=== PATIENT | male | born 1930 | race Caucasian/White ===

== ENCOUNTER 2018-09-07 15:11 | Emergency (ER) | payer BC, OTHER ==
[2018-09-07 15:22] VITALS: BP 137/89; PULSE 71; TEMP 98.2; BMI 26.9
--- NOTE | 2018-09-07 16:02 | PDOC ---
History of Present Illness - General Chief Complaint: Pain, Acute Stated Complaint: RT.SHOULDER PAIN Time Seen by Provider: 09/07/18 15:45 History Source: Patient - History of Present Illness Initial Comments: 09/07/18 16:11 patient has right shoulder pain, acute onset this afternoon. 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 tried to lift self off toilet using his right arm to push off and strained his right shoulder and upper back muscles. gave him one Aleve and one Tylenol tablet which helped resolve most of his pain but was concerned about any other structural problem.enies fever, shortness of breath, no pleuritic chest pain, nor any breathing problems. Has no cardiac issue, denies numbness or tingling to hands Pain Location: reports: back Loss of Consciousness: no loss of consciousness Associated Symptoms (Fall): denies symptoms Past History - Travel Traveled outside of the country in the last 30 days: No Close contact w/someone who was outside of country & ill: No - Past Medical History Allergies/Adverse Reactions: Allergies Allergy/AdvReac Type Severity Reaction Status Date / Time No Known Allergies Allergy Verified 09/07/18 15:18 Home Medications: Ambulatory Orders Acetaminophen [Tylenol] 325 mg PO Q4H 09/07/18 Naproxen Sodium [Aleve] 220 mg PO ASDIR 09/07/18 - Suicide/Smoking/Psychosocial Hx Smoking History: Never smoked Have you smoked in the past 12 months: No Information on smoking cessation initiated: No Hx Alcohol Use: No Drug/Substance Use Hx: No Review of Systems - Review of Systems Able to Perform ROS?: Yes Is the patient limited American proficient: Yes HEENTM: Yes: See HPI. No: Symptoms Reported Respiratory: Yes: See HPI. No: Symptoms reported Musculoskeletal: Yes: Symptoms Reported, See HPI, Back Pain, Muscle Pain All Other Systems: Reviewed and Negative *Physical Exam - Vital Signs Last Vital Signs Temp Pulse Resp BP Pulse Ox 98.2 F 71 18 137/89 97 09/07/18 15:13 09/07/18 15:13 09/07/18 15:13 09/07/18 15:13 09/07/18 15:13 - Physical Exam General Appearance: Yes: Nourished, Appropriately Dressed, Apparent Distress HEENT: positive: NIC, Normal ENT Inspection, TMs Normal, Pharynx Normal Neck: positive: Supple. negative: Tender Respiratory/Chest: positive: Lungs Clear Gastrointestinal/Abdominal: positive: Soft. negative: Tender Musculoskeletal: positive: Normal Inspection, Decreased Range of Motion ( patient has lessened range of motion actively to abduction and forward flexion but able to passively abduct and forward flex past 90 elbow. Has no crepitus or step-offs to the scapula or clavicle, no before meals tenderness. Has no fullness ordeformity to shoulder joint. Has no C-spine tenderness crepitus or step-offs.Unable to reproduce point tenderness to upper trapezius or sternocleidomastoid insertions.). negative: Muscle Spasm (no palpable spasm or tension noted.) Extremity: positive: Normal Capillary Refill, Normal Inspection. negative: Normal Range of Motion, Tender Integumentary: positive: Normal Color, Dry, Warm Neurologic: positive: insurance adjuster II-XII NML intact, Fully Oriented, Alert, Normal Mood/ Affect, Normal Response, Motor Strength 5/5 Progress Note - Progress Note Progress Note: muscle strain right shoulder, will treat conservatively.Patient agrees x-rays probably not indicated as there is no true bone tenderness or injury and will continue NSAIDs for pain management. Will follow-up with PMD on Sunday if not significantly improved. *DC/Admit/Observation/Transfer Diagnosis at time of Disposition: Strain of shoulder, right Qualifiers: Encounter type: initial encounter Qualified Code(s): S46.911A - Strain of unspecified muscle, fascia and tendon at shoulder and upper arm level, right arm , initial encounter - Discharge Dispostion Disposition: HOME Condition at time of disposition: Stable Decision to Admit order: No - Referrals Referrals: Jose Dhillon [Primary Care Provider] - - Patient Instructions Printed Discharge Instructions: DI for Muscle Strain Additional Instructions: Rest, ice to area on and off for 15 minutes 4-6 times a day Avoid heavy lifting or exercise until pain and swelling is resolved or until further directed Keep area highly elevated to reduce swelling Followup with orthopedist in one to 2 days if not improving, if significantly improved may wait one week for followup with orthopedist May use one tablet of Aleve every 12 hours as needed for pain - Post Discharge Activity
== END 2018-09-07 16:05 | disposition home or self-care (01) ==
LOC: JERFT 15:11 → JER 15:11 → JERFT 16:05
DX: S46.891A Other injury of other muscles, fascia and tendons at shoulder and upper arm level, right arm, initial encounter (principal); X50.9XXA Other and unspecified overexertion or strenuous movements or postures, initial encounter; X50.0XXA Overexertion from strenuous movement or load, initial encounter; Y93.89 Activity, other specified; Y92.012 Bathroom of single-family (private) house as the place of occurrence of the external cause; Y99.8 Other external cause status; M17.0 Bilateral primary osteoarthritis of knee
CPT/HCPCS: 99282-25